=== PATIENT | female | born 1945 | race Caucasian/White ===

== ENCOUNTER 2024-01-07 07:14 | Observation (INO) ==
[2024-01-07 07:42] LABS: Hematocrit 32.7 % (35-45); Hemoglobin 11.2 g/dL (11.5-14.3); Mean Corpuscular Hemoglobin 28.9 pg (27-33); Mean Corpuscular Hgb Conc 34.4 g/dL (31-36); Mean Platelet Volume 7.8 fL (7.5-11.2); Platelet Count 271 10^3/uL (150-450); Red Blood Count 3.89 10^6/uL (3.63-4.92); Red Cell Distribution Width 14.5 % (12-17); White Blood Count 16.6 10^3/uL (3.8-11.8)
[2024-01-07 07:57] LABS: INR 1.18 (0.83-1.13)
[2024-01-07 08:25] LABS: Albumin 3.9 g/dL (3.2-5.2); Albumin/Globulin Ratio 1.4 (1-3); Creatinine, Serum 1.08 mg/dL (0.51-0.95); Globulin 2.8 g/dL (2-4); Potassium 3.6 mmol/L (3.5-5.0); Total Bilirubin 0.6 mg/dL (0.2-1.0); Total Protein 6.7 g/dL (6.4-8.9); eGFR CKD-EPI 52.3 (>60)
[2024-01-07 08:26] LABS: ABS Lymphocytes 0.3 10^3/uL (1.0-4.8); ABS Monocytes 0.4 10^3/uL (0.0-0.9); ABS Neutrophils 15.8 10^3/uL (1.5-7.6); Eosinophil % 0.1 %; Lymphocyte % 2.1 %; RBC Morphology Normal (Normal)
[2024-01-07 09:09] LABS: High Sensitivity Troponin 1 Hr 13 pg/mL (<15)
[2024-01-07] MEDS: Iodixanol (CONTRAST) 320 MG/ML 100 ML SDV IV ONE (09:48)
[2024-01-07] MEDS: Acetaminophen IV 1 GM/100ML 1,000 MG/100 ML BAG IV ONE (12:39)
[2024-01-07 13:02] LABS: TSH Ultra Thyroid Stim Horm 3.18 mcIU/mL (0.34-5.60)
[2024-01-07 13:04] LABS: Free T4 1.3 ng/dL (0.61-1.12)
[2024-01-07] MEDS: NS 0.9% 1000 ml BAG 1,000 ML IV SCH (13:11)
[2024-01-07] MEDS: cefTRIAXone 1 gm/50 mL D5W 1 GM/50 ML BAG IV SCH (18:16)
[2024-01-07 18:26] LABS: Urine Appearance Clear; Urine Bacteria 1+ /HPF (Absent); Urine Bilirubin Negative (Negative); Urine Blood 2+ (Negative); Urine Color Yellow; Urine Glucose Negative (Negative); Urine Ketones 1+ (Negative); Urine Nitrite Negative (Negative); Urine Protein 2+ (>=100 mg/dL) (Negative); Urine Red Blood Cell 3+(>10/hpf) /HPF (0-Trace); Urine Specific Gravity >1.050 (1.002-1.030); Urine Squamous Epithelial Cell Present /HPF (Absent); Urine Transitional Epithelial Present /HPF (Absent); Urine Urobilinogen Negative (Negative); Urine White Blood Cell 3+(>20/hpf) /HPF (0-Trace); Urine pH 6.5 (5.0-8.0)
[2024-01-07 18:44] LABS: HDL Cholesterol 71.2 mg/dL
[2024-01-08 06:01] LABS: ABS Lymphocytes 0.8 10^3/uL (1.0-4.8); ABS Monocytes 0.6 10^3/uL (0.0-0.9); ABS Neutrophils 15.5 10^3/uL (1.5-7.6); Hematocrit 30.1 % (35-45); Hemoglobin 10.2 g/dL (11.5-14.3); Lymphocyte % 4.8 %; Mean Corpuscular Hemoglobin 28.5 pg (27-33); Mean Corpuscular Hgb Conc 33.9 g/dL (31-36); Mean Corpuscular Volume 84.1 fL (80-97); Platelet Count 282 10^3/uL (150-450); Red Blood Count 3.58 10^6/uL (3.63-4.92); Red Cell Distribution Width 14.8 % (12-17)
[2024-01-08 06:15] LABS: Albumin 3.3 g/dL (3.2-5.2); Albumin/Globulin Ratio 1.4 (1-3); Calcium 8.2 mg/dL (8.6-10.3); Creatinine, Serum 0.85 mg/dL (0.51-0.95); Globulin 2.4 g/dL (2-4); Potassium 3.7 mmol/L (3.5-5.0); Total Bilirubin 0.5 mg/dL (0.2-1.0); Total Protein 5.7 g/dL (6.4-8.9); eGFR CKD-EPI 69.6 (>60)
[2024-01-08] MEDS: NS 0.9% 1000 ml BAG 1,000 ML IV ONE (11:25)
[2024-01-08] MEDS: NS 0.9% 1000 ml BAG 1,000 ML IV SCH (12:01)
[2024-01-08] MEDS: Mometasone/Formoter 200/5 MDI INH SCH (20:12)
[2024-01-09 05:04] LABS: ABS Monocytes 0.6 10^3/uL (0.0-0.9); Eosinophil % 0.3 %; Hematocrit 27.6 % (35-45); Hemoglobin 9.5 g/dL (11.5-14.3); Mean Corpuscular Hemoglobin 28.7 pg (27-33); Mean Corpuscular Hgb Conc 34.5 g/dL (31-36); Mean Corpuscular Volume 83.4 fL (80-97); Mean Platelet Volume 7.8 fL (7.5-11.2); Platelet Count 278 10^3/uL (150-450); Red Blood Count 3.31 10^6/uL (3.63-4.92); Red Cell Distribution Width 14.5 % (12-17); White Blood Count 9.6 10^3/uL (3.8-11.8)
[2024-01-09 05:18] LABS: Albumin/Globulin Ratio 1.3 (1-3); Calcium 7.7 mg/dL (8.6-10.3); Creatinine, Serum 0.68 mg/dL (0.51-0.95); Globulin 2.3 g/dL (2-4); Potassium 3.5 mmol/L (3.5-5.0); Total Bilirubin 0.4 mg/dL (0.2-1.0); Total Protein 5.3 g/dL (6.4-8.9); eGFR CKD-EPI 88.5 (>60)
[2024-01-09 10:02] VITALS: BP 137/80
== END 2024-01-09 11:50 | disposition home or self-care (01) ==
LOC: ED 07:14 → EDHOLD 07:14 → MED 16:58
PROVIDERS: ADMIT Hospitalist; ATTEND Hospitalist